=== PATIENT | male | born 1990 | race Caucasian/White ===

== ENCOUNTER 2021-03-06 12:49 | Emergency (ER) | payer SELFPAY ==
[~2021-03-06] VITALS: Ht 175.3 cm; Wt 63.6 kg
[2021-03-06 13:08] VITALS: TEMP 98.3
[2021-03-06 13:54] LABS: BASO % 0.1 % (0.0-2.0); GRAN # 10.4 (1.4-6.5); GRAN % 85.4 % (42.2-75.2); HEMATOCRIT 42.7 % (42.0-52.0); HEMOGLOBIN 14.6 g/dl (13.5-18.0); LYMPH # 1.1 (1.2-3.4); LYMPH % 8.6 % (20.0-51.0); MEAN CELL VOLUME 91 fl (80.0-100.0); MEAN CORPUSCULAR HEMOGLOBIN 31 pg (27.0-31.0); MEAN CORPUSCULAR HGB CONC 34 g/dl (33.0-37.0); MEAN PLATELET VOLUME 8.3 fl (7.4-10.4); MONO # 0.7 (0.1-0.6); MONO % 5.7 % (1.7-9.3); PLATELET COUNT 201 K/mm3 (130-400); RED BLOOD COUNT 4.68 M/mm3 (4.20-5.60); REDCELL DISTRIBUTION WIDTH-CV 13.2 % (11.5-14.5)
[2021-03-06 14:05] LABS: ALBUMIN 3.6 gm/dL (3.5-5.0); BILIRUBIN,TOTAL 0.6 mg/dL (0.0-1.0); CALCIUM 8.7 mg/dL (8.4-10.2); CREATININE, serum 0.71 (0.66-1.25); POTASSIUM 4.1 mmol/L (3.4-5.0); TOTAL PROTEIN 6.6 gm/dL (6.4-8.2)
[2021-03-06] MEDS ORDERED: ZOFRAN ODT4 MG PO (14:51)
[2021-03-06 15:00] VITALS: BP 110/87; PULSE 76
== END 2021-03-06 15:05 | disposition home or self-care (01) ==
LOC: COL.ER 12:49
PROVIDERS: Personal Emergency Response Attendant
DX: R10.31 Right lower quadrant pain (principal); R10.32 Left lower quadrant pain; R11.10 Vomiting, unspecified
CPT/HCPCS: J2270; J2405; J7030; Q9967